=== PATIENT | male | born 1965 | race Caucasian/White ===

== ENCOUNTER 2019-01-01 12:11 | Emergency (ER) | payer SELFPAY ==
--- NOTE | 2019-01-01 12:26 | ER Document Report ---
ED Medical Screen (RME) - General Chief Complaint: Vomiting Stated Complaint: VOMITING Time Seen by Provider: 01/01/19 12:20 Primary Care Provider: NAIN DAN [Primary Care Provider] - Follow up as needed Mode of Arrival: Ambulatory Information source: Patient Notes: 53-year-old male presents with complaint of nausea, vomiting, chest pain that started 5 days prior to arrival. He states chest pain is associated with eating and vomiting. Patient has been unable to tolerate any food or fluid I have greeted and performed a rapid initial assessment of this patient. A comprehensive ED assessment and evaluation of the patient, analysis of test results and completion of medical decision making process we will be contacted by additional ED providers. PHYSICAL EXAMINATION: Vital signs reviewed-tachycardic GENERAL: Ill-appearing, well-nourished and in no acute distress. LUNGS: No respiratory distress Musculoskeletal: Normal range of motion NEUROLOGICAL: Normal speech, normal gait. PSYCH: Normal mood, normal affect. SKIN: Warm, Dry, normal turgor, no rashes or lesions noted. - HPI Onset: Last week Onset/Duration: Persistent Quality of pain: Burning Severity: Mild Associated Symptoms: Chest pain, Nausea, Vomiting Exacerbated by: Denies Relieved by: Food Similar symptoms previously: No Recently seen / treated by doctor: No - Related Data Smoking: Non-smoker Frequency of alcohol use: None Drug Abuse: None Physical Exam - Vital signs Vitals: Temp Pulse Resp BP Pulse Ox 97.6 F 116 H 16 107/65 95 01/01/19 12:16 01/01/19 12:16 01/01/19 12:16 01/01/19 12:16 01/01/19 12:16 Course - Vital Signs Vital signs: Temp Pulse Resp BP Pulse Ox 97.6 F 116 H 16 107/65 95 01/01/19 12:16 01/01/19 12:16 01/01/19 12:16 01/01/19 12:16 01/01/19 12:16 Doctor's Discharge - Discharge Referrals: NAIN DAN [Primary Care Provider] - Follow up as needed
[2019-01-01] MEDS ORDERED: NORMAL SALINE 1000 ML 1,000 ML IV ONE (12:27)
[2019-01-01] MEDS ORDERED: LIDOCAINE 2% VISCOUS SOLN 20 ML UDCUP PO ONE (12:27)
[2019-01-01] MEDS ORDERED: MAG HYDROX/AL HYDROX/SIMETH SUSP 30 ML UDCUP PO ONE (12:27)
[2019-01-01] MEDS ORDERED: ONDANSETRON HCL INJ/PF 4 MG/2 ML SDV IV ONE ×2 (12:27→15:27)
[2019-01-01 13:14] LABS: ABSOLUTE EOSINOPHILS # (AUTO) 0.2 10^3/uL (0.0-0.6); ABSOLUTE LYMPHOCYTES (AUTO) 1.5 10^3/uL (0.5-4.7); ABSOLUTE MONOCYTES (AUTO) 0.6 10^3/uL (0.1-1.4); ABSOLUTE NEUT (AUTO) 4.9 10^3/uL (1.7-8.2); BASOPHILS % (AUTO) 0.4 % (0-2); EOSINOPHILS % (AUTO) 2.7 % (0-6); HEMATOCRIT 44.8 % (37.9-51.0); HEMOGLOBIN 15.3 g/dL (13.5-17.0); LYMPHOCYTES % (AUTO) 20.9 % (13-45); MEAN CORPUSCULAR HEMOGLOBIN 30.5 pg (27.0-33.4); MEAN CORPUSCULAR HGB CONC 34.2 g/dL (32.0-36.0); MEAN CORPUSCULAR VOLUME 89 fl (80-97); MONOCYTES % (AUTO) 7.9 % (3-13); PLATELET COUNT 243 10^3/uL (150-450); RED BLOOD COUNT 5.03 10^6/uL (4.35-5.55); RED CELL DISTRIBUTION WIDTH 13.5 % (11.5-14.0); SEGMENTED NEUTROPHILS % (AUTO) 68.1 % (42-78); TOTAL CELLS COUNTED % (AUTO) 100 %; WHITE BLOOD COUNT 7.2 10^3/uL (4.0-10.5)
--- NOTE | 2019-01-01 13:22 | ER Document Report ---
ED General - General Chief Complaint: Vomiting Stated Complaint: VOMITING Time Seen by Provider: 01/01/19 12:20 Primary Care Provider: [facility] [Provider Group] - Follow up tomorrow [facility] [Provider Group] - Follow up as needed GLENNY HART MD [ACTIVE STAFF] - Follow up tomorrow Mode of Arrival: Ambulatory Information source: Patient Notes: Patient presents complaining of chest pain, upper abdominal pain with nausea and vomiting. Patient states he had the pain for the past 5 days. Patient has not vomited any today although vomited 3 times yesterday. Patient denies any fever, diarrhea cough or urinary symptoms. Patient denies any shortness of breath. Patient complains of generalized fatigue. - HPI Onset: Other - 5 days Onset/Duration: Persistent Quality of pain: Achy Pain Level: 3 Associated symptoms: Chest pain, Nausea, Vomiting, Other - Upper abdominal pain. denies: Nonproductive cough, Productive cough, Diarrhea, Fever, Headache, Leg swelling, Shortness of breath Exacerbated by: Denies Relieved by: Denies Similar symptoms previously: No Recently seen / treated by doctor: No - Related Data Allergies/Adverse Reactions: No Known Allergies Allergy (Verified 01/01/19 12:27) Past Medical History - General Information source: Patient - Social History Smoking Status: Unknown if Ever Smoked Chew tobacco use (# tins/day): No Frequency of alcohol use: None Drug Abuse: None Occupation: None Lives with: Family Family History: Reviewed & Not Pertinent Patient has suicidal ideation: No Patient has homicidal ideation: No - Medical History Medical History: Negative Renal/ Medical History: Denies: Hx Peritoneal Dialysis Surgical Hx: Negative Review of Systems - Review of Systems Constitutional: Malaise. denies: Chills, Fever EENT: No symptoms reported Cardiovascular: Chest pain. denies: Dizziness, Lightheaded Respiratory: No symptoms reported. denies: Cough, Short of breath Gastrointestinal: Abdominal pain, Nausea, Vomiting. denies: Diarrhea, Poor appetite Genitourinary: No symptoms reported. denies: Dysuria Male Genitourinary: No symptoms reported Musculoskeletal: No symptoms reported. denies: Back pain Skin: No symptoms reported Hematologic/Lymphatic: No symptoms reported Neurological/Psychological: No symptoms reported. denies: Confusion, Headaches Physical Exam - Vital signs Vitals: Temp Pulse Resp BP Pulse Ox 97.6 F 116 H 16 107/65 95 01/01/19 12:16 01/01/19 12:16 01/01/19 12:16 01/01/19 12:16 01/01/19 12:16 Interpretation: Normal. No: Tachycardic - General General appearance: Appears well, Alert In distress: None - HEENT Head: Normocephalic, Atraumatic Eyes: Normal Conjunctiva: Normal Nasal: Normal Mouth/Lips: Normal Mucous membranes: Normal Pharynx: Normal Neck: Normal, Supple. No: Lymphadenopathy - Respiratory Respiratory status: No respiratory distress Chest status: Nontender Breath sounds: Normal. No: Rales, Rhonchi, Stridor, Wheezing Chest palpation: Normal - Cardiovascular Rhythm: Regular. No: Tachycardia Heart sounds: S1 appreciated, S2 appreciated Murmur: No - Abdominal Inspection: Normal Distension: No distension Bowel sounds: Normal Tenderness: Tender - epigastric Organomegaly: No organomegaly - Back Back: Normal, Nontender. No: CVA tenderness, Vertebra tenderness - Extremities General upper extremity: Normal inspection, Normal ROM General lower extremity: Normal inspection, Normal ROM. No: Edema - Neurological Neuro grossly intact: Yes Cognition: Normal [place] Coma Scale Eye Opening: Spontaneous [place] Coma Scale Verbal: Oriented [place] Coma Scale Motor: Obeys Commands Radha Coma Scale Total: 15 - Psychological Associated symptoms: Normal affect, Normal mood - Skin Skin Temperature: Warm Skin Moisture: Dry Skin Color: Normal Course - Re-evaluation Re-evalutation: 01/01/19 15:52 Patient without any emesis during ER stay. Patient with mildly elevated creatinine. Patient without any previous ER visits and patient does not know what his baseline renal function test is. Patient without any choledocholithiasis or cholelithiasis. No concern for pancreatitis at this time. Patient with heart score of 1 for age. The patient has atypical chest pain as the patient's chest pain is not suggestive of pulmonary embolus, cardiac ischemia, aortic dissection, or other serious etiology. Given the extremely low risk of these diagnoses for the test in evaluation for these possibilities does not appear to be indicated at this time. Patient has been instructed to return if the symptoms worsen or change in any way. Patient encouraged to follow-up with a primary doctor for further evaluation of his symptoms. 01/01/19 15:55 - Vital Signs Vital signs: Temp Pulse Resp BP Pulse Ox 97.9 F 116 H 22 H 103/70 95 01/01/19 16:09 01/01/19 12:16 01/01/19 16:01 01/01/19 16:01 01/01/19 16:01 - Laboratory Result Diagrams: 01/01/19 12:44 01/01/19 12:44 Laboratory results interpreted by me: 01/01/19 12:44 Creatinine 1.31 H Est GFR (Non-Af Amer) 57 L Glucose 117 H Calcium 10.5 H Total Bilirubin 1.9 H Direct Bilirubin 0.9 H Labs- Entire Visit 01/01/19 01/01/19 01/01/19 12:44 12:44 12:44 WBC 7.2 RBC 5.03 Hgb 15.3 Hct 44.8 MCV 89 MCH 30.5 MCHC 34.2 RDW 13.5 Plt Count 243 Seg Neutrophils % 68.1 Lymphocytes % 20.9 Monocytes % 7.9 Eosinophils % 2.7 Basophils % 0.4 Absolute Neutrophils 4.9 Absolute Lymphocytes 1.5 Absolute Monocytes 0.6 Absolute Eosinophils 0.2 Absolute Basophils 0.0 Sodium 138.9 Potassium 4.1 Chloride 99 Carbon Dioxide 27 Anion Gap 13 BUN 20 Creatinine 1.31 H Est GFR ( Amer) > 60 Est GFR (Non-Af Amer) 57 L Glucose 117 H Calcium 10.5 H Magnesium 2.2 Total Bilirubin 1.9 H Direct Bilirubin 0.9 H Neonat Total Bilirubin Not Reportable Neonat Direct Bilirubin Not Reportable Neonat Indirect Bili Not Reportable AST 39 ALT 37 Alkaline Phosphatase 124 Troponin I NT-Pro-B Natriuret Pep Total Protein 7.1 Albumin 4.4 Lipase 53.4 TSH 01/01/19 01/01/19 01/01/19 12:44 12:44 12:44 WBC RBC Hgb Hct MCV MCH MCHC RDW Plt Count Seg Neutrophils % Lymphocytes % Monocytes % Eosinophils % Basophils % Absolute Neutrophils Absolute Lymphocytes Absolute Monocytes Absolute Eosinophils Absolute Basophils Sodium Potassium Chloride Carbon Dioxide Anion Gap BUN Creatinine Est GFR ( Amer) Est GFR (Non-Af Amer) Glucose Calcium Magnesium Total Bilirubin Direct Bilirubin Neonat Total Bilirubin Neonat Direct Bilirubin Neonat Indirect Bili AST ALT Alkaline Phosphatase Troponin I < 0.012 NT-Pro-B Natriuret Pep 54 Total Protein Albumin Lipase TSH 1.96 - Diagnostic Test Radiology reviewed: Reports reviewed - EKG Interpretation by Me EKG shows normal: Sinus rhythm Rate: Tachycardia When compared to previous EKG there are: Previous EKG unavailable Additional EKG results interpreted by me: 01/01/19 15:54 QTC 447 Discharge - Discharge Clinical Impression: Nausea, Epigastric pain Chest pain Qualifiers: Chest pain type: unspecified Qualified Code(s): R07.9 - Chest pain, unspecified Condition: Stable Disposition: HOME, SELF-CARE Instructions: Abdominal Pain ([facility]), Antinausea Medication ([facility]), Chest Pain of Unclear Cause ([facility]), Gastritis ([facility]) Additional Instructions: Return immediately for any new or worsening symptoms Followup with your primary care provider, call tomorrow to make a followup appointment 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 You should follow-up with a primary doctor who can recheck this test for you. Prescriptions: Famotidine [Pepcid 20 mg Tablet] 20 mg PO DAILY #12 tablet Omeprazole Magnesium [Prilosec Otc] 20 mg PO DAILY #15 tablet. Promethazine HCl [Phenergan 25 mg Tablet] 25 mg PO Q6H PRN #10 tablet PRN Reason: Referrals: [facility] [Provider Group] - Follow up as needed GLENNY HART MD [ACTIVE STAFF] - Follow up tomorrow [facility] [Provider Group] - Follow up tomorrow
[2019-01-01 13:31] LABS: ALANINE AMINOTRANSFERASE 37 U/L (21-72); ALBUMIN 4.4 g/dL (3.5-5.0); ALKALINE PHOSPHATASE 124 U/L (38-126); ANION GAP 13 (5-19); ASPARTATE AMINO TRANSFERASE 39 U/L (17-59); BILIRUBIN,DIRECT 0.9 mg/dL (0.0-0.4); BILIRUBIN,TOTAL 1.9 mg/dL (0.2-1.3); BLOOD UREA NITROGEN 20 mg/dL (7-20); CALCIUM 10.5 mg/dL (8.4-10.2); CARBON DIOXIDE 27 mmol/L (22-30); CHLORIDE 99 mmol/L (98-107); GLUCOSE 117 mg/dL (75-110); LIPASE 53.4 U/L (23-300); POTASSIUM 4.1 mmol/L (3.6-5.0); SODIUM 138.9 mmol/L (137-145); TOTAL PROTEIN 7.1 g/dL (6.3-8.2)
--- NOTE | 2019-01-01 13:31 | EKG REPORT ---
SEVERITY:- BORDERLINE ECG - SINUS TACHYCARDIA BORDERLINE T ABNORMALITIES, ANTERIOR LEADS : Confirmed by: Jadon Gilmore MD 01-Jan-2019 13:30:38
--- NOTE | 2019-01-01 14:11 | RADIOLOGY REPORT (SQ) ---
EXAM DESCRIPTION: CHEST 2 VIEWS COMPLETED DATE/TIME: 01/01/2019 1:56 pm REASON FOR STUDY: cp COMPARISON: None. EXAM PARAMETERS: NUMBER OF VIEWS: two views TECHNIQUE: Digital Frontal and Lateral radiographic views of the chest acquired. RADIATION DOSE: NA LIMITATIONS: none FINDINGS: LUNGS AND PLEURA: Bibasilar scarring or atelectasis. MEDIASTINUM AND HILAR STRUCTURES: No masses or contour abnormalities. HEART AND VASCULAR STRUCTURES: Mild cardiomegaly. BONES: No acute findings. HARDWARE: None in the chest. OTHER: No other significant finding. IMPRESSION: Bibasilar scarring or atelectasis. Mild cardiomegaly. TECHNICAL DOCUMENTATION: JOB ID: [id number] [employer]- All Rights Reserved Reading location - IP/workstation name: [email or web address]
--- NOTE | 2019-01-01 15:10 | RADIOLOGY REPORT (SQ) ---
EXAM DESCRIPTION: U/S ABDOMEN LIMITED W/O DOP COMPLETED DATE/TIME: 01/01/2019 2:56 pm REASON FOR STUDY: upper abd pain COMPARISON: None. TECHNIQUE: Dynamic and static grayscale images acquired of the abdomen and recorded on PACS. Additio lucero selected color Doppler and spectral images recorded. LIMITATIONS: None. FINDINGS: PANCREAS: No masses. Visualized pancreatic duct normal caliber. LIVER: The liver measures 11.7 cm, normal size. No masses. Echotexture normal. LIVER VASCULATURE: Normal directional flow of the main portal vein and hepatic veins. GALLBLADDER: No stones. The gallbladder wall measures 1.9 mm, normal wall thickness. No pericholecys tic fluid. ULTRASOUND-DETECTED VICTORIA'S SIGN: Negative. INTRAHEPATIC DUCTS AND COMMON DUCT: CBD measures 3.4 mm in diameter, normal. The intrahepatic ducts normal caliber. No filling defects. INFERIOR VENA CAVA: Normal flow. AORTA: No aneurysm. RIGHT KIDNEY: The patient states that she does not have a right kidney. The renal fossa was image, no abnormalities identified sonographically. PERITONEAL AND RIGHT PLEURAL SPACE: No ascites or effusions. OTHER: No other significant findings. IMPRESSION: 1. The patient states that she does not have a right kidney. The right renal fossa was image with no abnormalities identified sonographically. 2. Examination is otherwise unremarkable sonographically. TECHNICAL DOCUMENTATION: JOB ID: [id number] [facility]- All Rights Reserved Reading location - IP/workstation name: [email or web address]
[2019-01-01] MEDS ORDERED: ACETAMINOPHEN 325 MG TABLET PO ONE (15:56)
[2019-01-01 16:09] VITALS: BP 103/70
== END 2019-01-01 16:26 | disposition home or self-care (01) ==
LOC: ER 12:11
DX: R11.2 Nausea with vomiting, unspecified (principal); R10.13 Epigastric pain; R07.89 Other chest pain; R53.83 Other fatigue; R53.81 Other malaise
CPT/HCPCS: 93005; 96376; 99284; 96361; 96374; 36415; 83690; 83735; 84443; 85025; 80053; 84484; 83880; 71046; 76705; 93010; J3490; J2405; J7030

== ENCOUNTER → 2019-01-15 | Outpatient (CLI) | payer OTHER ==
[2019-01-15 12:55] LABS: ABSOLUTE EOSINOPHILS # (AUTO) 0.1 10^3/uL (0.0-0.6); ABSOLUTE LYMPHOCYTES (AUTO) 1.8 10^3/uL (0.5-4.7); ABSOLUTE MONOCYTES (AUTO) 0.4 10^3/uL (0.1-1.4); ABSOLUTE NEUT (AUTO) 3.7 10^3/uL (1.7-8.2); BASOPHILS % (AUTO) 0.6 % (0-2); EOSINOPHILS % (AUTO) 1.6 % (0-6); HEMATOCRIT 38.8 % (37.9-51.0); HEMOGLOBIN 13.5 g/dL (13.5-17.0); LYMPHOCYTES % (AUTO) 29.4 % (13-45); MEAN CORPUSCULAR HGB CONC 34.7 g/dL (32.0-36.0); MEAN CORPUSCULAR VOLUME 90 fl (80-97); MONOCYTES % (AUTO) 6.7 % (3-13); PLATELET COUNT 186 10^3/uL (150-450); RED BLOOD COUNT 4.34 10^6/uL (4.35-5.55); RED CELL DISTRIBUTION WIDTH 13.8 % (11.5-14.0); SEGMENTED NEUTROPHILS % (AUTO) 61.7 % (42-78); TOTAL CELLS COUNTED % (AUTO) 100 %
[2019-01-15 13:17] LABS: CHOLESTEROL 196.51 mg/dL (0-200); TRIGLYCERIDES 123 mg/dL (<150)
[2019-01-15 13:28] LABS: DIRECT LDL 126 mg/dL (<100)
== END ==
LOC: CCC 12:08
DX: Z00.00 Encounter for general adult medical examination without abnormal findings (principal)
CPT/HCPCS: 36415; 80061; 83036; 85025

== ENCOUNTER 2019-03-04 11:32 | Emergency (ER) | payer OTHER ==
[2019-03-04 11:39] VITALS: BP 117/72
[2019-03-04] MEDS ORDERED: DIPH/PERTUSS(ACELL)/TETANUS VAC/PF 0.5 ML SYR (>=10YO) IM ONE (11:44)
--- NOTE | 2019-03-04 11:45 | ER Document Report ---
ED Medical Screen (RME) - General Chief Complaint: Laceration Stated Complaint: WC/RIGHT HAND INJURY Time Seen by Provider: 03/04/19 11:40 Primary Care Provider: CB SCHMITT [Primary Care Provider] - Follow up as needed TRAVEL OUTSIDE OF THE [place] IN LAST 30 DAYS: No - HPI Notes: 03/04/19 11:44 Patient is a 53-year-old male no significant past medical history who presents to the emergency department complaining of laceration by a type cutter to his right distal fifth finger. Patient states the bleeding has been well controlled. He still able to move his finger without difficulty. No other concerns or complaints. Unknown last tetanus. Denies GARCIA, fever, neck pain, URI, CP, SOB, Abd pain, or rash. I have treated and performed a rapid initial assessment of this patient. A comprehensive ED assessment and evaluation of the patient, analysis of test results and completion of medical decision making process will be conducted by additional ED providers. PHYSICAL EXAMINATION: Rt 5th finger: there is a very superficial linear laceration noted lateral 5th distal digit. No active bleeding. N/V intact distal. No bony tenderness. - Related Data Allergies/Adverse Reactions: Penicillins Allergy (Verified 03/04/19 11:33) Past Medical History Renal/ Medical History: Denies: Hx Peritoneal Dialysis Physical Exam - Vital signs Vitals: Temp Pulse Resp BP Pulse Ox 97.9 F 100 18 117/72 96 03/04/19 11:37 03/04/19 11:37 03/04/19 11:37 03/04/19 11:37 03/04/19 11:37 Course - Vital Signs Vital signs: Temp Pulse Resp BP Pulse Ox 97.9 F 100 18 117/72 96 03/04/19 11:37 03/04/19 11:37 03/04/19 11:37 03/04/19 11:37 03/04/19 11:37 Doctor's Discharge - Discharge Referrals: CB SCHMITT [Primary Care Provider] - Follow up as needed
--- NOTE | 2019-03-04 12:07 | ER Document Report ---
HPI - HPI Patient complains to provider of: finger lac Time Seen by Provider: 03/04/19 11:40 Onset: Just prior to arrival Onset/Duration: Sudden Quality of pain: Achy Pain Level: 2 Context: Patient was using a tomato slicer at work to gently cut his right fifth finger. Patient was given a tetanus immunization in the triage area. Associated Symptoms: Other - Right finger laceration Exacerbated by: Movement Relieved by: Denies Similar symptoms previously: No Recently seen / treated by doctor: No - ROS ROS below otherwise negative: Yes Systems Reviewed and Negative: Yes All other systems reviewed and negative - CONSTITUTIONAL Constitutional: DENIES: Fever - NEURO Neurology: DENIES: Weakness - MUSCULOSKELETAL Musculoskeletal: REPORTS: Extremity pain - DERM Skin Color: Normal Skin Problems: Laceration Past Medical History - General Information source: Patient - Social History Smoking Status: Former Smoker Chew tobacco use (# tins/day): No Frequency of alcohol use: Rare Drug Abuse: None 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 IN LAST 30 DAYS: No - HEENT HEENT: Atraumatic, Normocephalic - NECK Neck: Normal Inspection - RESPIRATORY Respiratory: No Respiratory Distress - CARDIOVASCULAR Pulses: Normal: Radial - MUSCULOSKELETAL/EXTREMETIES Musculoskeletal/Extremeties: MAEW, FROM, Tender - Tenderness to right fifth finger - NEURO Level of Consciousness: Awake, Alert, Appropriate Motor/Sensory: No Motor Deficit, No Sensory Deficit - DERM Integumentary: Warm, Dry, Laceration - Superficial laceration along nail margin of right fifth finger, no active bleeding Course - Vital Signs Vital signs: Temp Pulse Resp BP Pulse Ox 97.9 F 100 18 117/72 96 03/04/19 11:37 03/04/19 11:37 03/04/19 11:37 03/04/19 11:37 03/04/19 11:37 Procedures - Immobilization Right Finger 5th digit Pre-Proc Neuro Vasc Exam: Normal Immobilizer type: Finger splint (Static) Performed by: PCT Post-Proc Neuro Vasc Exam: Normal Alignment checked and good: Yes - Laceration/Wound Repair Right Finger 5th digit Wound length (cm): 1 Wound's Depth, Shape: Superficial Laceration pre-procedure: Shur-Clens applied Wound explored: Clean Wound Repaired With: Dermabond Post-procedure wound care: Sterile dressing applied, Splint applied Post-procedure NV exam normal: Yes Complications: No Discharge - Discharge Clinical Impression: Right fifth finger laceration Condition: Stable Disposition: HOME, SELF-CARE Instructions: Non-Sutured Laceration ([facility]), Skin Adhesive Closure ([facility]), Tetanus Immunization Given ([facility]) Additional Instructions: Return immediately for any new or worsening symptoms Followup with your primary care provider, call tomorrow to make a followup appointment Wear splint for the next 3 to 4 days and then remove Avoid getting any lotion or ointments to the laceration as this will ruin the integrity of the skin glue Forms: Return to Work Referrals: [facility] [NO LOCAL MD] - Follow up as needed
== END 2019-03-04 12:15 | disposition home or self-care (01) ==
LOC: ER 11:32
DX: S61.216A Laceration without foreign body of right little finger without damage to nail, initial encounter (principal); W26.8XXA Contact with other sharp object(s), not elsewhere classified, initial encounter; Y93.G9 Activity, other involving cooking and grilling; Y92.511 Restaurant or cafe as the place of occurrence of the external cause; Y99.0 Civilian activity done for income or pay; Z23 Encounter for immunization; Z87.891 Personal history of nicotine dependence
CPT/HCPCS: 90471; 90715; 99282

== ENCOUNTER → 2019-12-19 | Outpatient (CLI) | payer OTHER ==
[2019-12-19 10:09] LABS: HEMATOCRIT 39.1 % (37.9-51.0); HEMOGLOBIN 13.4 g/dL (13.5-17.0); MEAN CORPUSCULAR HEMOGLOBIN 30.7 pg (27.0-33.4); MEAN CORPUSCULAR HGB CONC 34.3 g/dL (32.0-36.0); MEAN CORPUSCULAR VOLUME 90 fl (80-97); PLATELET COUNT 161 10^3/uL (150-450); RED BLOOD COUNT 4.37 10^6/uL (4.35-5.55); RED CELL DISTRIBUTION WIDTH 13.4 % (11.5-14.0); WHITE BLOOD COUNT 4.7 10^3/uL (4.0-10.5)
[2019-12-19 10:44] LABS: ALBUMIN 3.7 g/dL (3.5-5.0); ALKALINE PHOSPHATASE 81 U/L (38-126); ASPARTATE AMINO TRANSFERASE 34 U/L (17-59); BILIRUBIN,TOTAL 0.3 mg/dL (0.2-1.3); BLOOD UREA NITROGEN 16 mg/dL (7-20); CHOLESTEROL 172.06 mg/dL (0-200); GLUCOSE 86 mg/dL (75-110); POTASSIUM 4.2 mmol/L (3.6-5.0); TRIGLYCERIDES 71 mg/dL (<150)
[2019-12-19 10:49] LABS: CARBON DIOXIDE 31 mmol/L (22-30); CHLORIDE 111 mmol/L (98-107)
[2019-12-19 10:55] LABS: DIRECT LDL 99 mg/dL (<100)
[2019-12-19 10:56] LABS: ANION GAP 3 (5-19)
== END ==
LOC: CCC 09:13
DX: Z00.00 Encounter for general adult medical examination without abnormal findings (principal)
CPT/HCPCS: 36415; 80053; 80061; 83036; 84443; 85027